=== PATIENT | male | born 1995 | race Hispanic/Latino ===

== ENCOUNTER 2020-12-15 23:20 | Emergency (ER) | payer SELFPAY ==
[~2020-12-15] VITALS: Ht 160 cm; Wt 56.7 kg
[2020-12-16] MEDS ORDERED: MAG/ALUM/SIMETH 30 ML UDCUP ONE (00:26)
[2020-12-16] MEDS ORDERED: MAG/ALUM/SIMETH 30 ML UDCUP PO ONE (00:30)
[2020-12-16] MEDS ORDERED: PHEN177S35 MM (01:27)
[2020-12-16 01:41] VITALS: BP 115/68
== END 2020-12-16 01:42 | disposition home or self-care (01) ==
LOC: EDH 23:20
DX: S10.11XA Abrasion of throat, initial encounter (principal); Z88.0 Allergy status to penicillin; X58.XXXA Exposure to other specified factors, initial encounter; Y93.89 Activity, other specified; Y92.89 Other specified places as the place of occurrence of the external cause; Y99.8 Other external cause status
CPT/HCPCS: 99282

== ENCOUNTER 2024-01-22 09:11 | Emergency (ER) | payer SELFPAY ==
[~2024-01-22] VITALS: Ht 162.6 cm; Wt 63.5 kg
[~2024-01-22 09:11] MED LIST: PHEN177S35 MM
--- NOTE | 2024-01-22 09:25 | ERN ---
General Chief Complaint: Abdominal Pain Stated Complaint: RLQ PAIN Time Seen by MD: 09:13 Source: patient History of Present Illness Initial Comments Patient is a 28-year-old male coming in to be evaluated for right lower quadrant pain. Patient states that the pain has been ongoing for one month. Patient also states that the pain presents most often when he is eating spicy foods. No fever no chills no nausea no vomiting. Allergies: Coded Allergies: Penicillins (Unverified Allergy, Unknown, 12/15/20) Home Meds Active Scripts Phenol (Chloraseptic) 177 Ml [place].pump, 7 ML MM 5X/DAY, #1 BOTTLE Prov:IVY ARMAS MD 12/16/20 Past Medical History Past Medical History: No Pertinent History Past Surgical History: None Family History Family History: Negative Social History Social History: Drugs, Lives with family ROS Dictation CONSTITUTIONAL: No chills, no fever, no weakness, no diaphoresis, no malaise. HEAD/FACE: No signs of trauma. EENT: No eye pain, no blurred vision, no tearing, no double vision, no ear pain, no ear discharge, no nose pain, no nasal congestion, no throat pain, no throat swelling, no mouth pain. RESPIRATORY: No cough, no orthopnea, no SOB, no stridor, no wheezing. CARDIOVASCULAR: No chest pain, no edema, no palpitations, no syncope. GASTROINTESTINAL/ABDOMINAL: abdominal pain, no constipation, no diarrhea, no nausea, no vomiting. GENITOURINARY: No abnormal discharge, no dysuria, no frequent urination, no hematuria. No complaints of pain in the genitals. MUSCULOSKELETAL: No back pain, no gout, no joint pain, no joint swelling, no muscle pain, no muscle stiffness, no neck pain. INTEGUMENTARY: No change in color, no change in hair/nails, no dryness, no lesion, no lumps, no rash. NEUROLOGICAL/PSYCH: No anxiety, not depressed, no emotional problem, no headache, no numbness, no pre-existing deficit, no history of seizures, no tremors, no weakness. HEMATOLOGIC/LYMPHATIC: Not anemic, no history of blood clots, no apparent bleeding, no bruising, glands not swollen. All Systems Negative, Except as Noted. Physical Exam Physical Exam Dictation VITAL SIGNS: Reviewed. GENERAL APPEARANCE: Alert, oriented x3, no acute distress, obese. HEAD AND FACE: Non-traumatic. EYES: PERRL, pink conjunctivas, eyelid no trauma, anterior chamber clear. EARS: Pinnas intact and no signs of trauma or erythema. Ear canals clear and no discharge. TMs no erythema. NOSE: No discharge, no bleeding. OROPHARYNX: Mouth normal, teeth no caries, tongue pink. Pharynx clear, no erythema. Tonsils no exudates, no abscesses noted. Mucous membrane moist. NECK: Supple, non-tender, no thyromegaly, no masses, no JVD, no bruits. BREAST: Deferred. CHEST: No tenderness, no crepitus, no paradoxical movement, no retractions. LUNGS: Clear, well-ventilated, symmetric, no rales, no wheezing, no rhonchi, no stridor, good breath sounds bilaterally. HEART: Regular rate, regular rhythm, no murmur, no gallops. VASCULAR: No peripheral edema. ABDOMEN: Soft, positive bowel sounds, nondistended, no guarding, rlq tender, no rebound, no masses no hepatomegaly, no splenomegaly, no Brown's sign, no hernias. RECTAL: Deferred. GENITAL: Deferred. NEUROLOGICAL: Normal speech, gross motor function intact, gross sensory function intact. MUSCULOSKELETAL: Neck nontender, full range of motion, back nontender, full range of motion. EXTREMITIES: Nontender, full range of motion. SKIN: Color pink, dry, no turgor, no rash, no lacerations, no abrasions, no contusions. LYMPHATICS: Deferred. Results Laboratory and Microbiology Lab and Micro Result Laboratory Tests Test 01/22/24 09:25 01/22/24 09:43 Urine Color YELLOW (YELLOW) Urine Appearance CLEAR (CLEAR) Urine pH 5.5 (5.0-8.0) Urine Specific [place] 1.026 (1.001-1.031) Urine Protein 10 mg/dL (NEGATIVE) H Urine Glucose (UA) NEGATIVE mg/dL (NEGATIVE) Urine Ketones NEGATIVE mg/dL (NEGATIVE) Urine Occult Blood NEGATIVE (NEGATIVE) Urine Nitrate NEGATIVE (NEGATIVE) Urine Bilirubin NEGATIVE mg/dL (NEGATIVE) Urine Urobilinogen 0.2 mg/dL (0.2-1.0) Urine Leukocyte Esterase NEGATIVE [place]/uL Urine RBC 0-1 /HPF (0-1) Urine WBC 2-5 /HPF (0-1) H Urine Bacteria RARE /HPF (None Seen) White Blood Count 7.2 K/uL (4.8-10.8) Red Blood Count 5.11 MIL/uL (4.50-6.20) Hemoglobin 15.6 g/dL (14.0-18.0) Hematocrit 44.9 % (42-54) Mean Corpuscular Volume 87.9 fL (79-99) Mean Corpuscular Hemoglobin 30.5 pg (27.0-33.0) Mean Corpuscular Hemoglobin Concent 34.7 g/dL (32.0-36.0) Red Cell Distribution Width 12.3 % (11.0-15.5) Platelet Count 217 K/uL (130-400) Mean Platelet Volume 10.1 fL (7.5-10.5) Immature Granulocyte % (Auto) 0.7 % (0-1) Neutrophils (%) (Auto) 54.0 % (40.0-77.0) Lymphocytes (%) (Auto) 35.2 % (21.0-51.0) Monocytes (%) (Auto) 7.8 % (3.0-13.0) Eosinophils (%) (Auto) 1.5 % (0.0-8.0) Basophils (%) (Auto) 0.8 % (0.0-5.0) Neutrophils # (Auto) 3.9 K/uL (1.8-7.7) Lymphocytes # (Auto) 2.5 K/uL (1.0-4.8) Monocytes # (Auto) 0.6 K/uL (0.1-1.0) Eosinophils # (Auto) 0.11 K/uL (0.00-0.70) Basophils # (Auto) 0.06 K/uL (0.00-0.20) Absolute Immature Granulocyte (auto 0.05 K/uL (0-1) Nucleated Red Blood Cells 0.0 % (0.0-0.19) Sodium Level 142 mmol/L (136-145) Potassium Level 3.8 mmol/L (3.5-5.1) Chloride Level 103 mmol/L (101-111) Carbon Dioxide Level 34 mmol/L (21-32) H Blood Urea Nitrogen 12 mg/dL (7-18) Creatinine 1.0 mg/dL (0.5-1.3) Glomerular Filtration Rate Calc 105 mL/min (>90) Random Glucose 117 mg/dL (70-105) H Total Calcium 8.9 mg/dL (8.5-10.1) Labs Reviewed?: Yes EKG/XRAY/US/CT/MRI CT Scan Comment [address] [place] [address] IMAGING REPORT Signed PATIENT: SHAWNA BRITO MR#: [id number] : 1995 SEX: M AGE: 28 LOCATION: [facility] ORDER 1002 STATUS: REG REPORT#: [id number] SERVICE 1001 REASON: rlq pain ORDERING PHYSICIAN: TRISTAN RICO MD PROCEDURE: ABD PEL WO - CT ABDOMEN/PELVIS W/O CONTRAST CT ABDOMEN/PELVIS W/O CONTRAST HISTORY: Right lower abdominal pain COMPARISON: None TECHNIQUE: Multiple sequential axial images of the abdomen and pelvis were obtained from the dome of the diaphragm through symphysis pubis. Patient was not given contrast through intravenous route. Oral contrast was not given. FINDINGS: No pleural effusion is seen bilaterally. There is no evidence of parenchymal disease or pulmonary nodule of the visualized lower lungs. Degenerative changes of the thoracolumbar spine are present. The heart is not enlarged. Then liver measures 17 cm. The liver, spleen, adrenal glands and pancreas are unremarkable. There is no evidence of hydronephrosis bilaterally. No evidence of renal stone is seen. Fecal material is seen in the colon. There are normal size retroperitoneal and mesenteric lymph nodes. No ascites is seen. No CT evidence of acute appendicitis is seen. Clinical correlation is recommended. Pelvic sidewalls are symmetric bilaterally. Bladder is poorly distended. IMPRESSION: 1. No acute findings. CT was performed with one or more following dose reduction techniques: automated exposure control, adjustment of the mA and kv according to patient's size, or use of a iterative reconstruction technique. DICTATED BY: CAMILLE CAZARES MD DATE: 01/22/24 1034 ELECTRONICALLY SIGNED BY: CAMILLE CAZARES MD DATE: 01/22/24 1038 [facility] MDM: Differential diagnosis: Constipation, gastritis, chronic abdominal pain Patient is a 20-year-old male coming in to be evaluated for right lower quadrant pain. On physical exam there is tenderness to palpation of the evaluated quadrant area. Patient does state that the symptoms have been ongoing for a couple of weeks. CT did not disclose acute findings in the laboratory workup. Patient will be discharged with a diagnosis of chronic abdominal discomfort secondary to constipation and gastritis. ED Course Orders Procedure Category Date Status Time Cbc With Differential LAB 01/22/24 Complete 09:15 Basic Metabolic Panel LAB 01/22/24 Complete 09:15 Urinalysis LAB 01/22/24 Complete W/Microscopic 09:15 0.9%Nacl 1000ml (Ns PHA 01/22/24 Complete 1000ml) 09:30 Pantoprazole 40mg Inj PHA 01/22/24 Complete (Protonix 40mg Inj 09:30 Ct Abdomen/Pelvis W/O CT 01/22/24 Resulted Contrast 10:01 Current Medications Medications (Trade) Dose Ordered Sig/[place] Route PRN Reason Start Time Stop Time Status Last Admin Dose Admin Pantoprazole Sodium (PROTonix 40MG INJ) 40 mg ONCE ONCE IVP 01/22/24 09:30 01/22/24 09:31 DC 01/22/24 10:33 Sodium Chloride 1,000 ml @ 0 mls/hr ONCE ONCE IV 01/22/24 09:30 01/22/24 09:31 DC 01/22/24 10:33 Vital Signs Date Time Temp Pulse Resp B/P (MAP) Pulse Ox O2 Delivery O2 Flow Rate FiO2 01/22/24 10:48 9 18 121/88 99 Room Air* 0 01/22/24 09:18 98.6 97 18 146/88 97 Room Air* 0 01/22/24 09:13 98.6 89 16 146/98 Room Air 0 DX & DISP Disposition: Discharge Departure Impression: Primary Impression: Chronic abdominal pain Additional Impressions: Constipation, Gastritis Condition: Stable Scripts Lactulose (Lactulose) 10 Gram/15 Ml Solution 30 ML PO BID for constipation, #500 ML 0 Refills Prov: TRISTAN RICO MD 01/22/24 Additional Instructions: FOLLOW-UP WITH PRIMARY CARE PROVIDER IN 1 TO 2 DAYS. TAKE MEDICATIONS DIRECTED HERE IN THE EMERGENCY ROOM. OKAY TO CONTINUE HOME MEDICATIONS UNLESS OTHERWISE DISCUSSED DURING YOUR VISIT IN THE EMERGENCY ROOM TODAY. RETURN TO YOUR NEAREST EMERGENCY ROOM IF SYMPTOMS WORSEN OR IF THERE IS NO IMPROVEMENT. CALL 911 IF YOU NEED IMMEDIATE ASSISTANCE. TAKE TYLENOL [id number] NEEDED AND IF NO CONTRAINDICATIONS ARE PRESENT. INCREASE ORAL HYDRATION. A WOUND CULTURE OR URINE CULTURE WAS ORDERED HERE IN THE EMERGENCY ROOM DEPARTMENT PLEASE FOLLOW-UP WITH PRIMARY CARE PROVIDER AND ADVISE THEM TO GET REPEAT PORTS FROM OUR FACILITY. IF YOU HAD ANY FELY WRAP/SPLINTS THAT WERE APPLIED HERE, PLEASE DO NOT REMOVE THEM UNTIL YOU SEE YOUR PRIMARY CARE OR SPECIALTY. Referrals: Referrals: NONE (PCP) NESTOR HAQUE MD Time of Disposition: 10:57 TRISTAN RICO MD Jan 22, 2024 09:25
[2024-01-22 09:48] LABS: BASOPHILS # (AUTO) 0.06 K/uL (0.00-0.20); BASOPHILS % (AUTO) 0.8 % (0.0-5.0); EOSINOPHILS # (AUTO) 0.11 K/uL (0.00-0.70); EOSINOPHILS % (AUTO) 1.5 % (0.0-8.0); HEMATOCRIT 44.9 % (42-54); IMMATURE GRANULOCYTE ABSOLUTE 0.05 K/uL (0-1); LYMPHOCYTES # (AUTO) 2.5 K/uL (1.0-4.8); LYMPHOCYTES % (AUTO) 35.2 % (21.0-51.0); MEAN CORPUSCULAR HEMOGLOBIN 30.5 pg (27.0-33.0); MEAN CORPUSCULAR HGB CONC 34.7 g/dL (32.0-36.0); MEAN CORPUSCULAR VOLUME 87.9 fL (79-99); MONOCYTES # (AUTO) 0.6 K/uL (0.1-1.0); MONOCYTES % (AUTO) 7.8 % (3.0-13.0); NEUTROPHILS # (AUTO) 3.9 K/uL (1.8-7.7); PLATELET COUNT (AUTO) 217 K/uL (130-400); RED BLOOD CELL COUNT(AUTO) 5.11 MIL/uL (4.50-6.20); RED CELL DISTRIBUTION WIDTH 12.3 % (11.0-15.5); WHITE BLOOD COUNT (AUTO) 7.2 K/uL (4.8-10.8)
[2024-01-22 09:53] LABS: POTASSIUM 3.8 mmol/L (3.5-5.1)
[2024-01-22 09:57] LABS: APPEARANCE,URINE CLEAR (CLEAR); BILIRUBIN,URINE NEGATIVE (NEGATIVE); COLOR,URINE YELLOW (YELLOW); GLUCOSE, URINE (UA) NEGATIVE (NEGATIVE); KETONES,URINE NEGATIVE (NEGATIVE); LEUKOCYTE ESTERASE ,URINE NEGATIVE Leu/uL (NEGATIVE); NITRATE,URINE NEGATIVE (NEGATIVE); OCCULT BLOOD,URINE NEGATIVE (NEGATIVE); PH,URINE 5.5 (5.0-8.0); PROTEIN,URINE 10 mg/dL (NEGATIVE); UROBILINOGEN,URINE 0.2 mg/dL (0.2-1.0)
[2024-01-22 10:04] LABS: BACTERIA,URINE RARE /HPF (None Seen); MUCUS,URINE RARE LPF (None Seen); RBC,URINE 0-1 /HPF (0-1)
[2024-01-22] MEDS: PANTOPrazole 40 MG/VIAL IVP ONE (10:33)
[2024-01-22] MEDS: 0.9%NACL 1000ML 1,000 ML IV ONE (10:33)
--- NOTE | 2024-01-22 10:38 | HMCIMG ---
CT ABDOMEN/PELVIS W/O CONTRAST HISTORY: Right lower abdominal pain COMPARISON: None TECHNIQUE: Multiple sequential axial images of the abdomen and pelvis were obtained from the dome of the diaphragm through symphysis pubis. Patient was not given contrast through intravenous route. Oral contrast was not given. FINDINGS: No pleural effusion is seen bilaterally. There is no evidence of parenchymal disease or pulmonary nodule of the visualized lower lungs. Degenerative changes of the thoracolumbar spine are present. The heart is not enlarged. Then liver measures 17 cm. The liver, spleen, adrenal glands and pancreas are unremarkable. There is no evidence of hydronephrosis bilaterally. No evidence of renal stone is seen. Fecal material is seen in the colon. There are normal size retroperitoneal and mesenteric lymph nodes. No ascites is seen. No CT evidence of acute appendicitis is seen. Clinical correlation is recommended. Pelvic sidewalls are symmetric bilaterally. Bladder is poorly distended. IMPRESSION: 1. No acute findings. CT was performed with one or more following dose reduction techniques: automated exposure control, adjustment of the mA and kv according to patient's size, or use of a iterative reconstruction technique.
[2024-01-22 10:48] VITALS: BP_DIAS 88
[2024-01-22] MEDS ORDERED: LACT10SO85 PO (10:59)
[2024-01-22 12:09] VITALS: BP_SYST 122; PULSE 90; RESP 16; TEMP 98; O2SAT 100
== END 2024-01-22 12:27 | disposition home or self-care (01) ==
LOC: EDH 09:11
DX: G89.29 Other chronic pain (principal); R10.31 Right lower quadrant pain; K59.00 Constipation, unspecified; K29.70 Gastritis, unspecified, without bleeding; Z88.0 Allergy status to penicillin
CPT/HCPCS: 99285; 74176; 96374; 80048; 85025; 81001; 36415; J7030; J2470